=== PATIENT | female | born 2000 | race Caucasian/White ===

== ENCOUNTER 2020-11-03 18:38 | Emergency (ER) | payer MEDICAID ==
[~2020-11-03] VITALS: Ht 175.3 cm; Wt 118.0 kg
--- NOTE | 2020-11-03 19:13 | PHYS DOC ---
Past History Past Medical History: Anxiety General Adult HPI: HPI: '.. ".. I think I am .. I did 4 home tests.. and they said I was positive.. but now I am cramping and bleeding again...".. I am worried I may be having a miscarriage".. Patient is a 20 year old FEMALE who presents with above hx and complaints of vaginal bleeding with 4 home test that were positive for . This is patient's first . Patient is on prenatals. Patient has quit smoking. Patient denies any trauma. Patient denies any travel. Patient denies any minerals suppression. Lifetime sex partners 4. No history of STDs. Pain is localized and central pelvic area and radiates to back. Patient did [facility] Patient plans on having a baby at . No recent travel. No specific ill contacts. No history of fever or chills. No history of bad food intake. No history of problems with defecation or urination. Review of Systems: Review of Systems: Constitutional: Denies fever or chills Eyes: Denies change in visual acuity HENT: Denies nasal congestion or sore throat Respiratory: Denies cough or shortness of breath Cardiovascular: Denies chest pain or edema GI: Complains of low abdominal pain, nausea,. Complains of bleeding like a.. peroid. Denies Vomiting, bloody stools or diarrhea : Denies dysuria Musculoskeletal: Complains of low back pain Integument: Denies rash Neurologic: Denies headache, focal weakness or sensory changes Endocrine: Denies polyuria or polydipsia Lymphatic: Denies swollen glands Psychiatric: Denies depression or anxiety Family History: Family History: Noncontributory to presentation Current Medications: Current Meds: See nursing for home meds Allergies: Allergies: No known drug allergies Physical Exam: PE: Constitutional: Well developed, well nourished, no acute distress, non-toxic appearance. [] HENT: Normocephalic, atraumatic, bilateral external ears normal, oropharynx moist, no oral exudates, nose normal. [] Eyes: PERRLA, EOMI, conjunctiva normal, no discharge. [] Neck: Normal range of motion, no tenderness, supple, no stridor. [] Cardiovascular:Heart rate regular rhythm, no murmur [] Lungs & Thorax: Bilateral breath sounds clear to auscultation [] Abdomen: Bowel sounds normal, soft, no tenderness, no masses, no pulsatile masses. Obese. Pelvic exam shows bleeding from os. Os relatively closed. No adnexal tenderness. Rectal exam hard stool. No bleeding. Obese. Skin: Warm, dry, no erythema, no rash. [] Back: Mild lumbar tenderness, no CVA tenderness. [] Extremities: No tenderness, no cyanosis, no clubbing, ROM intact, no edema. [] Neurologic: Alert and oriented X 3, normal motor function, normal sensory function, no focal deficits noted. [] Psychologic: Affect anxious , judgement normal, mood normal. [] EKG: EKG: [] Radiology/Procedures: Radiology/Procedures: [][address] [address] IMAGING REPORT Signed PATIENT: EVA GRECO JACCOUNT: [id number] : 2000 LOCATION: ER AGE: 20 SEX: F EXAM STATUS: REG ER ORD. PHYSICIAN: GERALD OG MD REASON: Preg. Blleeding , pain PROCEDURE: PREG 1ST TRIMESTER OB ultrasound less than 14 weeks to include transabdominal and transvaginal imaging 11/03/2020 CLINICAL HISTORY: First trimester with vaginal bleeding and pelvic pain. TECHNIQUE: Using the distended urinary bladder as a sonographic window, a real- time ultrasound examination of the pelvis was performed. Additionally in an attempt to better evaluate the uterus and adnexa, a transvaginal ultrasound study was performed. Multiple images were obtained. FINDINGS: A rounded fluid collection is seen within the endometrial canal of the superior body of the uterus which may represent a very early gestational sac. No yolk sac or embryonic pole is seen within this to confirm an IUP at this time. This has a mean sac diameter of 4.6 mm (estimated gestational age by ultrasound of 5 weeks 2 days plus or minus a standard deviation of 6 days). The uterus is otherwise within normal limits. Both ovaries are within normal limits in size and echogenicity. The right ovary measures 2.3 x 2.0 x 1.8 cm in size. Left ovary measures 3.3 x 1.8 x 1.7 cm in s ize. No adnexal mass is seen. No free fluid is noted. IMPRESSION: Findings are seen suggestive of a very early IUP as discussed above. Electronically signed by: Javier Del Castlilo MD (11/03/2020 10:08 PM) [id number] DICTATED AND SIGNED BY: JAVIER DEL CASTILLO MD DATE: 11/03/202200 CC: GERALD OG MD; ZACHARY BRIZUELA MD ~MTH0 0 Heart Score: Risk Factors: Risk Factors: DM, Current or recent (<one month) smoker, HTN, HLP, family history of CAD, obesity. Risk Scores: Score 0 - 3: 2.5% MACE over next 6 weeks - Discharge Home Score 4 - 6: 20.3% MACE over next 6 weeks - Admit for Clinical Observation Score 7 - 10: 72.7% MACE over next 6 weeks - Early Invasive Strategies Course & Med Decision Making: Course & Med Decision Making Pertinent Labs and Imaging studies reviewed. (See chart for details) Continue pad counts. Follow-up cultures. 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 Continue vitamins. Take only Tylenol for pain. Make plans on where you want to deliver. If further complications with this must follow-up hospital you plan to deliver for continuity of care. Impression: 1. Threatened miscarriage 2. BHCG= 225 3. Hgb= 14.,5 [] Dragon Disclaimer: Dragon Disclaimer: This electronic medical record was generated, in whole or in part, using a voice recognition dictation system. Impression: 1. Abdomen pain with vaginal bleeding Departure Departure: Referrals: ZACHARY BRIZUELA MD (PCP) GERALD OG MD Nov 03, 2020 19:13
[2020-11-03] MEDS ORDERED: IV RINGERS SOLUTION,LACTATED 1,000 ML IV SCH (19:15)
[2020-11-03 19:20] VITALS: BP 120/75
[2020-11-03 19:43] LABS: AMPHETAMINE/METHAMPHETAMINE NEG (NEG); BARBITURATES NEG (NEG); BENZODIAZEPINES NEG (NEG); CANNABINOIDS NEG (NEG); COCAINE NEG (NEG); METHADONE NEG (NEG); OPIATES NEG (NEG); PHENCYCLIDINE NEG (NEG)
[2020-11-03 19:50] LABS: BASO # 0.1 x10^3/uL (0.0-0.2); BASO % 1 % (0-3); EOS % 0 % (0-3); HEMATOCRIT 43.4 % (36.0-47.0); HEMOGLOBIN 14.5 g/dL (12.0-15.5); LYMPH # 3.8 x10^3/uL (1.0-4.8); LYMPH % 35 % (24-48); MEAN CORPUSCULAR HEMOGLOBIN 31 pg (25-35); MEAN CORPUSCULAR HGB CONC 34 g/dL (31-37); MEAN CORPUSCULAR VOLUME 91 fL (79-100); MONO # 0.5 x10^3/uL (0.0-1.1); MONO % 5 % (0-9); NEUT # 6.3 x10^3uL (1.8-7.7); NEUT % 59 % (31-73); PLATELET COUNT 309 x10^3/uL (140-400); RED BLOOD COUNT 4.77 x10^6/uL (3.50-5.40); RED CELL DISTRIBUTION WIDTH 12.9 % (11.5-14.5); WHITE BLOOD COUNT 10.7 x10^3/uL (4.0-11.0)
[2020-11-03 19:56] LABS: BILIRUBIN,URINE NEG (NEG); CLARITY,URINE HAZY; COLOR,URINE AMBER; GLUCOSE,URINE NEG (NEG); NITRITE,URINE NEG (NEG); UROBILINOGEN,URINE 0.2 mg/dL (0.2 mg/dL)
[2020-11-03 19:57] LABS: BACTERIA,URINE 0 /HPF (0-FEW); RBC,URINE TNTC /HPF (0-2); SQUAMOUS EPITHELIAL CELL,UR FEW /LPF; WBC,URINE 0 /HPF (0-4)
[2020-11-03 20:00] LABS: CALCIUM 8.8 mg/dL (8.5-10.1); CREATININE 0.6 mg/dL (0.6-1.0); POTASSIUM 3.7 mmol/L (3.5-5.1)
[2020-11-03 20:06] LABS: ALBUMIN 3.6 g/dL (3.4-5.0); DIRECT BILIRUBIN 0.1 mg/dL (0.0-0.2); TOTAL BILIRUBIN 0.2 mg/dL (0.2-1.0); TOTAL PROTEIN 7.8 g/dL (6.4-8.2)
--- NOTE | 2020-11-03 22:10 | RAD ---
OB ultrasound less than 14 weeks to include transabdominal and transvaginal imaging 11/03/2020 CLINICAL HISTORY: First trimester with vaginal bleeding and pelvic pain. TECHNIQUE: Using the distended urinary bladder as a sonographic window, a real-time ultrasound examin ation of the pelvis was performed. Additionally in an attempt to better evaluate the uterus and adnex a, a transvaginal ultrasound study was performed. Multiple images were obtained. FINDINGS: A rounded fluid collection is seen within the endometrial canal of the superior body of the uterus which may represent a very early gestational sac. No yolk sac or embryonic pole is seen withi n this to confirm an IUP at this time. This has a mean sac diameter of 4.6 mm (estimated gestational age by ultrasound of 5 weeks 2 days plus or minus a standard deviation of 6 days). The uterus is othe rwise within normal limits. Both ovaries are within normal limits in size and echogenicity. The right ovary measures 2.3 x 2.0 x 1.8 cm in size. Left ovary measures 3.3 x 1.8 x 1.7 cm in size. No adnexal mass is seen. No free flui d is noted. IMPRESSION: Findings are seen suggestive of a very early IUP as discussed above. Electronically signed by: Javier Del Castillo MD (11/03/2020 10:08 PM) [id number]
--- NOTE | 2020-11-03 22:46 | EKG ---
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
[2020-11-05 19:08] LABS: CHLAMYDIA PROBE Negative (Negative)
== END 2020-11-03 22:36 | disposition home or self-care (01) ==
LOC: ER 18:38
DX: O20.0 Threatened abortion (principal); M54.5 Low back pain; F41.9 Anxiety disorder, unspecified; Z3A.01 Less than 8 weeks gestation of pregnancy
CPT/HCPCS: 36415; 76801; 80048; 80076; 80307; 81001; 81025; 84702; 85025; 85610; 85730; 86900; 86901; 87491; 87591; 93005; 96360; 99285; J7120; Q0111

== ENCOUNTER 2020-12-25 16:24 | Emergency (ER) | payer MEDICAID ==
[~2020-12-25] VITALS: Ht 172.7 cm; Wt 117.6 kg
--- NOTE | 2020-12-25 17:44 | PHYS DOC ---
Past History Past Medical History: Other Additional Past Medical Histor: Miscariage (JAMARCUSETHAN STRIP FEEDER) Past Surgical History: No Surgical History (ETHAN RICKETTS STRIP FEEDER) Alcohol Use: None (ETHAN RICKETTS APRN) Adult General Chief Complaint Chief Complaint: BACK PAIN - NO INJURY HPI HPI Patient is a 20-year-old female patient presenting to the ED today complaining of a throbbing intermittent 2 out of 10 mid to lower back pain, symptoms began this afternoon while she was sleeping. Patient states symptoms are worse on touching her low back. Denies anything specifically relieving the symptoms though she states the pain has dramatically gone down. Denies any urgency frequency or dysuria. She states her last menstrual cycle was in October and she does not know if she is or not. (BILLYETHAN Sanchez STRIP FEEDER) Review of Systems Review of Systems Constitutional: Denies fever or chills [] Eyes: Denies change in visual acuity, redness, or eye pain [] HENT: Denies nasal congestion or sore throat [] Respiratory: Denies cough or shortness of breath [] Cardiovascular: No additional information not addressed in HPI [] GI: Denies abdominal pain, nausea, vomiting, bloody stools or diarrhea [] : Denies dysuria or hematuria [] Musculoskeletal: Reports mid to low back pain Integument: Denies rash or skin lesions [] Neurologic: Denies headache, focal weakness or sensory changes [] All other systems were reviewed and found to be within normal limits, except as documented in this note. (ETHAN RICKETTS STRIP FEEDER) Allergies Allergies Allergies Coded Allergies Type Severity Reaction Last Updated Verified No Known Drug Allergies 12/25/20 No (VIDHYAANGELITAETHAN Sanchez STRIP FEEDER) Physical Exam Physical Exam Constitutional: Well developed, well nourished, no acute distress, non-toxic appearance. [] HENT: Normocephalic, atraumatic, bilateral external ears normal, oropharynx moist, no oral exudates, nose normal. [] Eyes: PERRLA, EOMI, conjunctiva normal, no discharge. [] Neck: Normal range of motion, no tenderness, supple, no stridor. [] Cardiovascular:Heart rate regular rhythm, no murmur [] Lungs & Thorax: Bilateral breath sounds clear to auscultation [] Abdomen: Bowel sounds normal, soft, no tenderness, no masses, no pulsatile masses. [] Skin: Warm, dry, no erythema, no rash. [] Back: No tenderness, no CVA tenderness. [] Extremities: No tenderness, no cyanosis, no clubbing, ROM intact, no edema. [] Neurologic: Alert and oriented X 3, normal motor function, normal sensory function, no focal deficits noted. [] Psychologic: Affect normal, judgement normal, mood normal. [] (ETHAN RICKETTS APRN) Current Patient Data Vital Signs Vital Signs Date Time Temp Pulse Resp B/P (MAP) Pulse Ox O2 Delivery O2 Flow Rate FiO2 12/25/20 16:30 98.1 78 16 140/81 (100) 97 Room Air Lab Results Laboratory Tests Test 12/25/20 17:09 POC Urine HCG, Qualitative hcg negative (Negative) (ETHAN RICKETTS APRN) EKG EKG [] (ETHAN RICKETTS APRN) Radiology/Procedures Radiology/Procedures [] (ETHAN RICKETTS APRN) Heart Score Risk Factors: Risk Factors: DM, Current or recent (<one month) smoker, HTN, HLP, family history of CAD, obesity. Risk Scores: Risk Factors: DM, Current or recent (<one month) smoker, HTN, HLP, family history of CAD, obesity. (ETHAN RICKETTS APRN) Course & Med Decision Making Course & Med Decision Making Pertinent Labs and Imaging studies reviewed. (See chart for details) This is a 20-year-old female patient presented to the ED today with mid to low back pain, symptoms began while she was taking a nap this afternoon. Denies any known injury. Patient is concerned she could be . Last menstrual cycle October when she had a miscarriage. Urine hCG is negative, UA is negative. Pain appears musculoskeletal. Discharged with cyclobenzaprine, Medrol Dosepak and diclofenac. Follow-up with PCP in 1 to 2 weeks. (ETHAN RICKETTS APRN) Dragon Disclaimer Dragon Disclaimer This electronic medical record was generated, in whole or in part, using a voice recognition dictation system. (ETHAN RICKETTS APRN) Departure Departure: Impression: Primary Impression: Back pain Disposition: 01 DC HOME SELF CARE/HOMELESS Condition: STABLE Referrals: ZACHARY BRIZUELA MD (PCP) Follow-up in 1 to 2 weeks Patient Instructions: Back Pain, Adult Additional Instructions: You were evaluated in the emergency room for back pain, your test is negative, your urine does not have any infection. Please take the medicines prescribed as ordered. Consider using a heating pad on your low back as needed for pain. Please follow-up with your own doctor in 1 to 2 weeks Scripts Diclofenac Sodium (DICLOFENAC SODIUM) 50 Mg Tablet.dr 1 TAB PO BID, #60 TAB 1 Refill Prov: VIDHYAYASMINETHAN Cleary APRN 12/25/20 Cyclobenzaprine Hcl (CYCLOBENZAPRINE HCL) 10 Mg Tablet 1 TAB PO TID, #90 TAB Prov: VIDHYAETHAN HOFFMAN Evin GODDARDN 12/25/20 Methylprednisolone (MEDROL) 4 Mg Tab.ds.pk 1 PKG PO UD, #1 PKG Prov: ETHAN RICKETTS Evin MONTANO 12/25/20 Attending Signature Attending Signature I have participated in the care of this patient and I have reviewed and agree with all pertinent clinical information above including history, exam, and recommendations. (GERALD OG MD) Problem Qualifiers Primary Impression: Back pain Back pain location: thoracic back pain Chronicity: acute Back pain laterality: bilateral Qualified Codes: M54.6 - Pain in thoracic spine ETHAN RICKETTS APRN Dec 25, 2020 17:44 GERALD OG MD Dec 29, 2020 19:17
[2020-12-25 18:14] LABS: CLARITY,URINE CLEAR; COLOR,URINE YELLOW
[2020-12-25 18:15] VITALS: BP 139/78
[2020-12-25 18:15] LABS: BACTERIA,URINE 0 /HPF (0-FEW); BILIRUBIN,URINE NEG (NEG); GLUCOSE,URINE NEG (NEG); NITRITE,URINE NEG (NEG); RBC,URINE 0 /HPF (0-2); SQUAMOUS EPITHELIAL CELL,UR MANY /LPF; UROBILINOGEN,URINE 0.2 mg/dL (0.2 mg/dL); WBC,URINE 0 /HPF (0-4)
[2020-12-25] MEDS ORDERED: DICL50TA4 PO (18:19)
[2020-12-25] MEDS ORDERED: CYCL-331 PO (18:19)
[2020-12-25] MEDS ORDERED: METH4TAB2 PO (18:19)
== END 2020-12-25 18:46 | disposition home or self-care (01) ==
LOC: ER 16:24
DX: M54.6 Pain in thoracic spine (principal); M54.5 Low back pain
CPT/HCPCS: 81001; 81025; 99283

== ENCOUNTER 2020-12-28 04:06 | Emergency (ER) | payer MEDICAID ==
[~2020-12-28] VITALS: Ht 172.7 cm; Wt 119.8 kg
[~2020-12-28 04:06] MED LIST: CYCL-331 PO; DICL50TA4 PO; METH4TAB2 PO
--- NOTE | 2020-12-28 04:28 | PHYS DOC ---
Past History Past Medical History: No Pertinent History Additional Past Medical Histor: Miscariage Past Surgical History: No Surgical History Alcohol Use: None Adult General Chief Complaint Chief Complaint: RIB PAIN [facility] HPI Patient is a 20-year-old female who presents with a chief complaint of rib pain. States over the last several months she has had intermittent pain in her ribs just under her armpits. States that sometimes it starts on the left and some times it starts on the right. States that she had an episode earlier today where it started under her left and went to her right side. Denies any history of traumas, sports injuries. Denies any centralized chest pain, chest pain with exertion, dyspnea on exertion, orthopnea, PND or edema. Denies any cardiac history. Denies any alcohol or drug use. Denies any abdominal pain, nausea, vomiting, dysuria, hematuria or blood in the stool. Denies any history of STIs, vaginal bleeding or discharge. States she was in the emergency department 2 days ago for the same thing and got muscle relaxers which did seem to help. States she took one a couple hours ago before coming to the emergency department. States she has a primary care physician in the building, but has not had an opportunity to speak with him about this issue. Review of Systems Review of Systems Constitutional: Denies fever or chills [] Eyes: Denies change in visual acuity, redness, or eye pain [] HENT: Denies nasal congestion or sore throat [] Respiratory: Denies cough or shortness of breath [] Cardiovascular: No additional information not addressed in HPI [] GI: Denies abdominal pain, nausea, vomiting, bloody stools or diarrhea [] : Denies dysuria or hematuria [] Musculoskeletal: Denies back pain or joint pain [] Integument: Denies rash or skin lesions [] Neurologic: Denies headache, focal weakness or sensory changes [] Endocrine: Denies polyuria or polydipsia [] All other systems were reviewed and found to be within normal limits, except as documented in this note. Current Medications Current Medications Current Medications Medications (Trade) Dose Ordered Sig/Arianna Start Time Stop Time Status Last Admin Dose Admin Acetaminophen (Tylenol) 1,000 mg 1X ONCE 12/28/20 04:30 12/28/20 04:31 UNV Ibuprofen (Motrin) 800 mg 1X ONCE 12/28/20 04:30 12/28/20 04:31 UNV Allergies Allergies Allergies Coded Allergies Type Severity Reaction Last Updated Verified No Known Drug Allergies 12/25/20 No Physical Exam Physical Exam Constitutional: Well developed, well nourished, no acute distress, non-toxic dominick earance. [] HENT: Normocephalic, atraumatic, bilateral external ears normal, oropharynx moist, no oral exudates, nose normal. [] Eyes: conjunctiva normal, no discharge. [] Neck: Normal range of motion, Cardiovascular:Heart rate regular rhythm, no murmur [] Lungs & Thorax: Bilateral breath sounds clear to auscultation [] Abdomen: soft, no tenderness, no masses, no pulsatile masses. [] Skin: Warm, dry, no erythema, no rash. [] Back: No tenderness, Extremities: No tenderness, no cyanosis, no clubbing, ROM intact, no edema. [] Neurologic: Alert and oriented X 3, normal motor function, normal sensory function, no focal deficits noted. [] Psychologic: Affect normal, judgement normal, mood normal. [] Current Patient Data Vital Signs Vital Signs Date Time Temp Pulse Resp B/P (MAP) Pulse Ox O2 Delivery O2 Flow Rate FiO2 12/28/20 04:15 99.4 76 98 Room Air EKG EKG Rate of 67, QRS of 90, QTc of 415, no STEMI [] Radiology/Procedures Radiology/Procedures [] Heart Score C/O Chest Pain: No Risk Factors: Risk Factors: DM, Current or recent (<one month) smoker, HTN, HLP, family history of CAD, obesity. Risk Scores: Risk Factors: DM, Current or recent (<one month) smoker, HTN, HLP, family history of CAD, obesity. Course & Med Decision Making Course & Med Decision Making Patient is a 20-year-old female who presents with intermittent variable left- sided versus right-sided rib pain over the last several months Vital signs not concerning. Physical exam noted above. EKG noted above and normal. Given Tylenol, and ibuprofen in the ED. Imaging with no acute osseous abnormalities. Discussed findings with patient and advised follow-up with primary care physician first thing Tuesday morning to discuss this intermittent chronic rib pain issue and pain management at home. Given pain management strategies at home including Tylenol, ibuprofen, ice, Lidoderm patches and Benadryl. Advised to come back to the ED with new or concerning symptoms. Patient grateful, verbalized understanding and agreed with plan of discharge. [] Dragon Disclaimer Dragon Disclaimer This electronic medical record was generated, in whole or in part, using a voice recognition dictation system. Departure Departure: Impression: Primary Impression: Rib pain Disposition: 01 DC HOME SELF CARE/HOMELESS Condition: GOOD Referrals: ZACHARY BRIZUELA MD (PCP) Patient Instructions: Chest Pain (Nonspecific), [id number], RICE - Routine Care for Injuries Additional Instructions: Please read all the attached information. Please begin a short term schedule of Tylenol, ibuprofen, Benadryl, Lidoderm patches and ice as needed for your episodic rib pain. Please follow-up first thing Tuesday morning with your primary care physician to discuss this several month issue of bilateral rib pain and need for further imaging and/or pain management. Please come back to the ED with new or concerning symptoms. MAGEN LOPES MD Dec 28, 2020 04:28
[2020-12-28] MEDS ORDERED: ACETAMINOPHEN 500 MG TABLET PO ONE (04:30)
[2020-12-28] MEDS ORDERED: IBUPROFEN 600 MG TABLET. PO ONE (04:30)
[2020-12-28] MEDS ORDERED: IBUPROFEN 800 MG TABLET. PO ONE (04:30)
[2020-12-28] MEDS ORDERED: IBUPROFEN 400 MG TABLET. PO ONE (04:45)
--- NOTE | 2020-12-28 04:57 | EKG ---
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
--- NOTE | 2020-12-28 05:49 | RAD ---
XR RIBS AND CHEST 4+VIEWS DATE: 12/28/2020 5:23 AM INDICATION: Reason: rib pain, NO KNOWN INJURY / Spl. Instructions: / History: COMPARISON: None available. FINDINGS: Chest: Heart size is within normal limits. No focal consolidations are seen. No evidence for pulmona ry edema, pleural effusion, or pneumothorax. Bones: No radiographic evidence for a displaced rib fracture is seen. IMPRESSION: No displaced rib fractures. Electronically signed by: Wilber Smith MD (12/28/2020 5:46 AM) KATHERINE
== END 2020-12-28 05:55 | disposition home or self-care (01) ==
LOC: ER 04:06
DX: R07.81 Pleurodynia (principal)
CPT/HCPCS: 71111; 93005; 99283; 99284

== ENCOUNTER 2021-04-09 07:44 | Emergency (ER) | payer MEDICAID ==
[~2021-04-09] VITALS: Ht 172.7 cm; Wt 124.0 kg
[2021-04-09 07:52] VITALS: BP 139/78
[2021-04-09] MEDS ORDERED: IV NORMAL SALINE 1,000ML 1,000 ML IV ONE (08:00)
[2021-04-09] MEDS ORDERED: ONDANSETRON PF 4 MG/2 ML VIAL. IVP ONE (08:00)
--- NOTE | 2021-04-09 08:19 | PHYS DOC ---
Past History Past Medical History: No Pertinent History Additional Past Medical Histor: Miscariage Past Surgical History: No Surgical History Alcohol Use: None General Adult EDM: Chief Complaint: NAUSEA/VOMITING/DIARRHEA HPI: HPI: 20-year-old female presents with nausea and vomiting. The patient started vomiting yesterday. She had several episodes during the day and night. She continues to have vomiting today. She is concerned about dehydration at this time because she is unable to keep down even liquids. She has not had diarrhea. No one else at her house is sick. The patient is but she is not sure how far along. She had a positive test about a month ago. She had a miscarriage in October and has only had 1 menstrual cycle since. She denies vaginal bleeding or abdominal cramping. She has had decreased urination in the last 24 hours. Denies fever or chills. Review of Systems: Review of Systems: Constitutional: Denies fever or chills Eyes: Denies change in visual acuity HENT: Denies nasal congestion or sore throat Respiratory: Denies cough or shortness of breath Cardiovascular: Denies chest pain or edema GI: nausea, vomiting. Denies abdominal pain, bloody stools or diarrhea : Denies dysuria Musculoskeletal: Denies back pain or joint pain Integument: Denies rash Neurologic: Denies headache, focal weakness or sensory changes Endocrine: Denies polyuria or polydipsia Lymphatic: Denies swollen glands Psychiatric: Denies depression or anxiety Current Medications: Current Meds: Current Medications Medications (Trade) Dose Ordered Sig/[facility] Start Time Stop Time Status Last Admin Dose Admin Ondansetron HCl (Zofran) 4 mg 1X ONCE 04/09/21 08:00 04/09/21 08:01 DC Sodium Chloride 1,000 ml @ 1,000 mls/hr 1X ONCE 04/09/21 08:00 04/09/21 08:59 Allergies: Allergies: Allergies Coded Allergies Type Severity Reaction Last Updated Verified No Known Drug Allergies 12/25/20 No Physical Exam: PE: Constitutional: Well developed, well nourished, obese, no acute distress, non- toxic appearance. [] HENT: Normocephalic, atraumatic, bilateral external ears normal, oropharynx moist, no oral exudates, nose normal. [] Eyes: PERRLA, EOMI, conjunctiva normal, no discharge. [] Neck: Normal range of motion, no tenderness, supple, no stridor. [] Cardiovascular: Heart rate regular rhythm, no murmur [] Lungs & Thorax: Bilateral breath sounds clear to auscultation [] Abdomen: Bowel sounds normal, soft, no tenderness, no masses, no pulsatile masses. [] Skin: Warm, dry, no erythema, no rash. [] Back: No tenderness, no CVA tenderness. [] Extremities: No tenderness, no cyanosis, no clubbing, ROM intact, no edema. [] Neurologic: Alert and oriented X 3, normal motor function, normal sensory function, no focal deficits noted. [] Psychologic: Affect normal, judgement normal, mood normal. [] Current Patient Data: Labs: Laboratory Tests Test 04/09/21 08:12 POC Urine HCG, Qualitative hcg positive (Negative) EKG: EKG: [] Radiology/Procedures: Radiology/Procedures: [] Heart Score: C/O Chest Pain: N/A Risk Factors: Risk Factors: DM, Current or recent (<one month) smoker, HTN, HLP, family history of CAD, obesity. Risk Scores: Score 0 - 3: 2.5% MACE over next 6 weeks - Discharge Home Score 4 - 6: 20.3% MACE over next 6 weeks - Admit for Clinical Observation Score 7 - 10: 72.7% MACE over next 6 weeks - Early Invasive Strategies Course & Med Decision Making: Course & Med Decision Making Pertinent Labs and Imaging studies reviewed. (See chart for details) The patient's urinalysis is negative for infection. Her urine drug screen is positive for marijuana. She is . Her hCG is 87,539. I have encouraged the patient to start taking vitamins and to make her appointment with OB. She should also stop smoking marijuana. We have given her 4 mg of Zofran and a liter normal saline for her vomiting. She has had no further vomiting. I will discharge her with a prescription for Zofran. I have encouraged her to start with Benadryl to help with her nausea first. She is stable for discharge at this time. [] Dragon Disclaimer: Judith Disclaimer: This electronic medical record was generated, in whole or in part, using a voice recognition dictation system. Departure Departure: Impression: Primary Impression: Qualified Codes: Z34.90 - Encounter for supervision of normal , unspecified, unspecified trimester Additional Impression: Nausea and vomiting in Disposition: 01 HOME / SELF CARE / HOMELESS Condition: STABLE Referrals: ZACHARY BRIZUELA MD (PCP) Patient Instructions: Nausea and Vomiting, [id number], - First Trimester, Achz-mi-Pwht Scripts Pnv With Ca,No.72/Iron/Fa ( PLUS TABLET) 1 Each Tablet 1 TAB PO DAILY for for 30 Days, #30 TAB 0 Refills Prov: ARI LUEVANO DO 04/09/21 Ondansetron (ONDANSETRON ODT) 4 Mg Tab.rapdis 1 TAB PO PRN Q6-8HRS PRN for VOMITING, #16 TAB Prov: ARI LUEVANO DO 04/09/21 ARI LUEVANO DO Apr 09, 2021 08:19
[2021-04-09 08:23] LABS: BASO % 0 % (0-3); EOS % 0 % (0-3); HEMATOCRIT 41.9 % (36.0-47.0); HEMOGLOBIN 14.2 g/dL (12.0-15.5); LYMPH # 2.9 x10^3/uL (1.0-4.8); LYMPH % 26 % (24-48); MEAN CORPUSCULAR HEMOGLOBIN 31 pg (25-35); MEAN CORPUSCULAR HGB CONC 34 g/dL (31-37); MEAN CORPUSCULAR VOLUME 91 fL (79-100); MONO # 0.4 x10^3/uL (0.0-1.1); MONO % 4 % (0-9); NEUT # 7.9 x10^3uL (1.8-7.7); NEUT % 70 % (31-73); PLATELET COUNT 280 x10^3/uL (140-400); RED BLOOD COUNT 4.59 x10^6/uL (3.50-5.40); WHITE BLOOD COUNT 11.4 x10^3/uL (4.0-11.0)
[2021-04-09 08:35] LABS: CALCIUM 9.1 mg/dL (8.5-10.1); CREATININE 0.6 mg/dL (0.6-1.0); POTASSIUM 3.8 mmol/L (3.5-5.1)
[2021-04-09 08:39] LABS: ALBUMIN 3.2 g/dL (3.4-5.0); ALBUMIN/GLOBULIN RATIO 0.8 (1.0-1.7); TOTAL BILIRUBIN 0.3 mg/dL (0.2-1.0); TOTAL PROTEIN 7.4 g/dL (6.4-8.2)
[2021-04-09 08:40] LABS: AMORPHOUS SEDIMENT,UR PRESENT /HPF; BACTERIA,URINE FEW /HPF (0-FEW); BILIRUBIN,URINE NEG (NEG); CLARITY,URINE CLOUDY; COLOR,URINE YELLOW; GLUCOSE,URINE NEG (NEG); NITRITE,URINE NEG (NEG); RBC,URINE 0 /HPF (0-2); SQUAMOUS EPITHELIAL CELL,UR MANY /LPF; UROBILINOGEN,URINE 0.2 mg/dL (0.2 mg/dL)
[2021-04-09 08:45] LABS: BARBITURATES NEG (NEG); BENZODIAZEPINES NEG (NEG); CANNABINOIDS POS (NEG); COCAINE NEG (NEG); METHADONE NEG (NEG); OPIATES NEG (NEG); PHENCYCLIDINE NEG (NEG)
[2021-04-09 08:46] LABS: AMPHETAMINE/METHAMPHETAMINE NEG (NEG)
[2021-04-09] MEDS ORDERED: ONDA4TAB12 PO (09:33)
[2021-04-09] MEDS ORDERED: PNV1TABL31 PO (09:34)
== END 2021-04-09 10:12 | disposition home or self-care (01) ==
LOC: ER 07:44
DX: O21.8 Other vomiting complicating pregnancy (principal); Z3A.01 Less than 8 weeks gestation of pregnancy
CPT/HCPCS: 36415; 80053; 80307; 81001; 81025; 84702; 85025; 87086; 96361; 96374; 99283; J2405; J7030

== ENCOUNTER 2021-07-29 11:57 | Emergency (ER) | payer MEDICAID ==
[~2021-07-29] VITALS: Ht 172.7 cm; Wt 131.2 kg
[~2021-07-29 11:57] MED LIST changes: +ONDA4TAB12 PO; +PNV1TABL31 PO
[2021-07-29 12:12] VITALS: BP 155/88
--- NOTE | 2021-07-29 13:24 | PHYS DOC ---
Past History Past Medical History: No Pertinent History Additional Past Medical Histor: Miscarriage Past Surgical History: No Surgical History Alcohol Use: None General Adult EDM: Chief Complaint: OTHER COMPLAINTS HPI: HPI: Patient is a 20-year-old female who presents with concerns regarding her baby's movement. Patient states "the last time I felt the baby move was 30 minutes before I arrived". "The doctor at the health department told me if I had any c hange in the baby's movement that I needed to come to the ER". Patient denies abdominal pain, vaginal bleeding, dysuria. Unknown LMP. Patient states that she is 26 weeks . Patient's G2, P0 Review of Systems: Review of Systems: ROS At least 10 ROS systems have been reviewed and are negative except as documented in the HPI. General: Negative except as outlined in HPI above. Skin: Negative except as outlined in HPI above. HEENT: Negative except as outlined in HPI above. Neck: Negative except as outlined in HPI above. Respiratory: Negative except as outlined in HPI above.. Cardiovascular: Negative except as outlined in HPI above. Abdomen: Negative except as outlined in HPI above. : Negative except as outlined in HPI above. Back/MSK: Negative except as outlined in HPI above. Neuro: Negative except as outlined in HPI above. Psych: Negative except as outlined in HPI above. Allergies: Allergies: Allergies Coded Allergies Type Severity Reaction Last Updated Verified No Known Drug Allergies 12/25/20 No Physical Exam: PE: Constitutional: Well developed, well nourished, no acute distress, non-toxic appearance. [] HENT: Normocephalic, atraumatic, bilateral external ears normal, oropharynx moist, no oral exudates, nose normal. [] Eyes: PERRLA, EOMI, conjunctiva normal, no discharge. [] Neck: Normal range of motion, no tenderness, supple, no stridor. [] Cardiovascular:Heart rate regular rhythm, no murmur [] Lungs & Thorax: Bilateral breath sounds clear to auscultation [] Abdomen: Bowel sounds normal, soft, no tenderness, no masses, no pulsatile masses. [] Skin: Warm, dry, no erythema, no rash. [] Back: No tenderness, no CVA tenderness. [] Extremities: No tenderness, no cyanosis, no clubbing, ROM intact, no edema. [] Neurologic: Alert and oriented X 3, normal motor function, normal sensory function, no focal deficits noted. [] Psychologic: Affect normal, judgement normal, mood normal. [] Current Patient Data: Vital Signs: Vital Signs Date Time Temp Pulse Resp B/P (MAP) Pulse Ox O2 Delivery O2 Flow Rate FiO2 07/29/21 12:12 98.5 90 16 155/88 (110) 97 Room Air EKG: EKG: [] Radiology/Procedures: Radiology/Procedures: []EXAM: OB ULTRASOUND, > 14 WEEKS HISTORY: Decreased movement. COMPARISON: None. TECHNIQUE: Multiple grayscale images, color Doppler, and M-mode images of the uterus are obtained. FINDINGS: There is a single intrauterine gestation in breech presentation. The placenta is posterior in location without evidence of placenta previa. The amount of amniotic fluid appears appropriate. Amniotic fluid index is 12.9 cm. The cervix is obscured. Biometrical data: BPD = 6.73 cm for 27 weeks 1 days. HC = 24.68 cm for 26 weeks 6 days. AC = 23.02 cm for 27 weeks 3 days. FL = 5.21 cm for 27 weeks 5 days. HC/AC ratio = 1.07. Overall, the estimated sonographic gestational age is 27 weeks and 2 days for an estimated date of delivery of 10/26/2021. The estimated date of delivery provided by the last menstrual period is 10/31/2021. Estimated weight is 1076 grams. The heart rate is 140 beats per minute. The kidneys and bladder are unremarkable. There is body motion. The anatomy is not formally assessed on this exam. The maternal adnexal regions are not assessed. IMPRESSION: 1. Single intrauterine fetus in breech presentation with normal heart rate and gestational age patient also measurements of 27 weeks and 2 days. 2. Note is made that a formal anatomy survey was not performed during this exam. Electronically signed by: Florina Najera MD (07/29/2021 2:12 PM) [id number] Heart Score: C/O Chest Pain: No Risk Factors: Risk Factors: DM, Current or recent (<one month) smoker, HTN, HLP, family history of CAD, obesity. Risk Scores: Score 0 - 3: 2.5% MACE over next 6 weeks - Discharge Home Score 4 - 6: 20.3% MACE over next 6 weeks - Admit for Clinical Observation Score 7 - 10: 72.7% MACE over next 6 weeks - Early Invasive Strategies Course & Med Decision Making: Course & Med Decision Making Pertinent Labs and Imaging studies reviewed. (See chart for details) [] Patient is a 20-year-old female presents with concerns about movement. Patient is G2, P0. Patient states she felt the baby move 30 minutes prior to arrival to the ED but was concerned because movement was decreased according to mom. heart tones were difficult to assess due to mother's BMI. OB ultrasound ordered to rule out any abnormalities. Patient denies abdominal pain, vaginal bleeding, dysuria. OB ultrasound shows single intrauterine fetus in breech presentation with normal heart rate. Gestational age of 27 weeks and 2 days. Discussed results with patient. Advised patient to follow-up with her [facility] in the next 24 hours for further evaluation. Discussed return precautions in length. Patient is appreciative and okay with discharge instructions. Patient is hemodynamically stable on disposition. Dragon Disclaimer: Dragon Disclaimer: This electronic medical record was generated, in whole or in part, using a voice recognition dictation system. Departure Departure: Impression: Primary Impression: Decreased movements in second trimester Qualified Codes: O36.8120 - Decreased movements, second trimester, not applicable or unspecified Disposition: 01 HOME / SELF CARE / HOMELESS Condition: STABLE Referrals: ZACHARY BRIZUELA MD (PCP) Patient Instructions: Monitoring, Movement Assessment Additional Instructions: You were seen in the emergency room for concerns of decreased movement. Ultrasound shows single intrauterine fetus with normal heart rate and gestational age of 27 weeks and 2 days. Please follow-up with your OB in the next 24 hours. Return to emergency room with worsening symptoms or concerns. EMERGENCY DEPARTMENT GENERAL DISCHARGE INSTRUCTIONS Thank you for coming to [facility] (ED) today and trusting us with you care. We trust that you had a positivie experience in our Emergency Department. If you wish to speak to the department management, you may call the director at [phone]. YOUR FOLLOW UP INSTRUCTIONS ARE FOLLOWS: 1. Do you have a private Doctor? If you do not have a private doctor, please ask for a resource list of physicians or clinics that may be able to assist you with follow up care. 2. The Emergency Physician has interpreted your x-rays. The X-Ray specialist will also review them. If there is a change in the findings, you will be notified in 48 hours when at all possible. 3. A lab test or culture has been done, your results will be reviewed and you will be notified if you need a change in treatment. ADDITIONAL INSTRUCTIONS AND INFORMATION: 1. Your care today has been supervised by a physician who is specially trained in emergency care. Many problems require more than one evaluation for a complete diagnosis and treatment. We recommend that you schedule your follow up appointment as recommended to ensure complete treatment of you illness or injury. If you are unable to obtain follow up care and continue to have a problem, or if your condition worsens, we recommend that you return to the ED. 2. We are not able to safely determine your condition over the phone nor are we able to give sound medical advice over the phone. For these safety reasons, if you call for medical advice we will ask you to come to the ED for further evaluation. 3. If you have any questions regarding these discharge instructions please call the ED at [phone]. SAFETY INFORMATION: In the interest of safety, wellness, and injury prevention; we encourage you to wear your sealbelt, if you smoke; quite smoking, and we encourage family to use a protective helmet for bicycling and other sporting events that present an increased risk for head injury. IF YOUR SYMPTOMS WORSEN OR NEW SYMPTOMS DEVELOP, OR YOU HAVE CONCERNS ABOUT YOUR CONDITION; OR IF YOUR CONDITION WORSENS WHILE YOU ARE WAITING FOR YOUR FOLLOW UP APPOINTMENT; EITHER CONTACT YOUR PRIMARY CARE DOCTOR, THE PHYSICIAN WHOSE NAME AND NUMBER YOU WERE GIVEN, OR RETURN TO THE ED IMMEDIATELY. LYNSEY ONEILL APRN Jul 29, 2021 13:24
[2021-07-29 14:00] LABS: BACTERIA,URINE FEW /HPF (0-FEW); BILIRUBIN,URINE NEG (NEG); CLARITY,URINE HAZY; COLOR,URINE YELLOW; GLUCOSE,URINE NEG (NEG); NITRITE,URINE NEG (NEG); SQUAMOUS EPITHELIAL CELL,UR MANY /LPF; UROBILINOGEN,URINE 0.2 mg/dL (0.2 mg/dL)
--- NOTE | 2021-07-29 14:15 | RAD ---
EXAM: OB ULTRASOUND, > 14 WEEKS HISTORY: Decreased movement. COMPARISON: None. TECHNIQUE: Multiple grayscale images, color Doppler, and M-mode images of the uterus are obtained. FINDINGS: There is a single intrauterine gestation in breech presentation. The placenta is posterior in locatio n without evidence of placenta previa. The amount of amniotic fluid appears appropriate. Amniotic fl uid index is 12.9 cm. The cervix is obscured. Biometrical data: BPD = 6.73 cm for 27 weeks 1 days. HC = 24.68 cm for 26 weeks 6 days. AC = 23.02 cm for 27 weeks 3 days. FL = 5.21 cm for 27 weeks 5 days. HC/AC ratio = 1.07. Overall, the estimated sonographic gestational age is 27 weeks and 2 days for an estimated date of de livery of 10/26/2021. The estimated date of delivery provided by the last menstrual period is 10/31/2021. Estimated weight is 1076 grams. The heart rate is 140 beats per minute. The kidneys and bladder are unremarkable. There is body motion. The anatomy is not formally assessed on this exam. The maternal adnexal regions are not assessed. IMPRESSION: 1. Single intrauterine fetus in breech presentation with normal heart rate and gestational age patien t also measurements of 27 weeks and 2 days. 2. Note is made that a formal anatomy survey was not performed during this exam. Electronically signed by: Florina Najera MD (07/29/2021 2:12 PM) [id number]
== END 2021-07-29 14:59 | disposition home or self-care (01) ==
LOC: ER 11:57
DX: O36.8120 Decreased fetal movements, second trimester, not applicable or unspecified (principal); Z3A.27 27 weeks gestation of pregnancy
CPT/HCPCS: 76815; 81001; 87086; 99284

== ENCOUNTER 2021-10-31 01:48 | Emergency (ER) | payer MEDICAID ==
[~2021-10-31] VITALS: Ht 172.7 cm; Wt 128.1 kg
[~2021-10-31 01:48] MED LIST changes: -CYCL-331 PO; +CYCL10TA19 PO
[2021-10-31 02:09] VITALS: BP 127/74
[2021-10-31] MEDS ORDERED: AMOX1TAB61 PO (02:14)
[2021-10-31] MEDS ORDERED: AMOXICILLIN/K CLAV 875/125MG TABLET. PO ONE (02:15)
--- NOTE | 2021-10-31 02:15 | PHYS DOC ---
Past History Past Medical History: No Pertinent History Additional Past Medical Histor: Miscarriage Past Surgical History: No Surgical History Alcohol Use: None Adult General Chief Complaint Chief Complaint: POST-OP PROBLEM HPI HPI Patient is an otherwise healthy 21-year-old female who presents with concern for infection of her scar. States she gave New Year's, with no complications. States there had been any bleeding or fluid but it just itches around the scar and has an odor. Denies any recent traumas, travels, illnesses, fevers, rash, chest pain, shortness of breath, abdominal pain, nausea, vomiting, dysuria, hematuria or blood in the stool, or diarrhea.. Denies any vaginal bleeding, discharge, pain or odor. Review of Systems Review of Systems Review of systems otherwise unremarkable except noted in HPI Allergies Allergies Allergies Coded Allergies Type Severity Reaction Last Updated Verified No Known Drug Allergies 12/25/20 No Physical Exam Physical Exam Constitutional: Well developed, well nourished, no acute distress, non-toxic appearance. [] HENT: Normocephalic, atraumatic, bilateral external ears normal, oropharynx moist, no oral exudates, nose normal. [] Eyes: conjunctiva normal, no discharge. [] Neck: Normal range of motion, no tenderness, supple, no stridor. [] Cardiovascular:Heart rate regular rhythm, no murmur [] Lungs & Thorax: Bilateral breath sounds clear to auscultation [] Abdomen: Patient has a clean, dry and intact scar with no erythema, induration or fluctuance, but does have what appears to be a yeast infection soft, no tenderness, no masses, no pulsatile masses. [] Skin: Warm, dry, no erythema, no rash. [] Extremities: No tenderness, no cyanosis, no clubbing, ROM intact, no edema. [] Neurologic: Alert and oriented X 3, normal motor function, normal sensory function, no focal deficits noted. [] Psychologic: Affect normal, judgement normal, mood normal. [] EKG EKG [] Radiology/Procedures Radiology/Procedures [] Heart Score C/O Chest Pain: No Risk Factors: Risk Factors: DM, Current or recent (<one month) smoker, HTN, HLP, family history of CAD, obesity. Risk Scores: Risk Factors: DM, Current or recent (<one month) smoker, HTN, HLP, family history of CAD, obesity. Course & Med Decision Making Course & Med Decision Making Patient is a 21-year-old female who presents with concern for infection of C- section scar Vital signs nonconcerning. Physical exam noted above. scar clean, dry and intact with no fluctuance, induration or erythema or drainage. Discussed keeping the area between the pannus center lower abdomen clean and dry as well as keeping some sort of clothing material between the so they do not rub. Advised on topical fungal treatments. Patient concerned that there is an infection and requested antibiotics. Started on Augmentin, short course until she can follow-up with her primary care on Tuesday. Advised to call her primary care physician first thing Tuesday to update on ED visit and set up a follow-up for reevaluation next week. Gave return precautions to the ED. Patient grateful, verbalized understanding and agreed with plan of discharge. Dragon Disclaimer Dragon Disclaimer This electronic medical record was generated, in whole or in part, using a voice recognition dictation system. Departure Departure: Impression: Primary Impression: Visit for wound check Additional Impression: Tinea corporis Disposition: HOME / SELF CARE / HOMELESS Condition: GOOD Referrals: ZACHARY BRIZUELA MD (PCP) Patient Instructions: Wound Care, [id number], Yeast Infection of the Skin, [id number] Additional Instructions: Thank you for coming into the emergency department tonight and allowing us to take care of you. Please read the attached information carefully to go over things we discussed. Please keep that area clean, dry and covered as we discus sed. He should also be using a topical yeast/fungal treatment either lotion or powder will work and keep it covered as we discussed. Please take your antibiotics as prescribed until gone. Please call your primary care physician first thing Tuesday to update on your ED visit and set up a follow-up appointment for reevaluation as soon as you can. Please come back with new or concerning symptoms as discussed Scripts Amoxicillin/Potassium Clav (AUGMENTIN [id number] TABLET) 1 Each Tablet 1 TAB PO BID for wound for 5 Days, #10 TAB 0 Refills Prov: MAGEN LOPES MD 10/31/21 Problem Qualifiers MAGEN LOPES MD Oct 31, 2021 02:15
== END 2021-10-31 02:20 | disposition home or self-care (01) ==
LOC: ER 01:48
DX: O86.89 Other specified puerperal infections (principal); B35.4 Tinea corporis; Z98.890 Other specified postprocedural states
CPT/HCPCS: 99283